=== PATIENT | male | born 1975 | race Caucasian/White ===

== ENCOUNTER → 2021-11-14 07:32 | Outpatient (REF) | payer OTHER, SELFPAY ==
[2021-11-14 09:40] LABS: Body Fluid Mononuclear 82.3 %; Body Fluid Polymorphonuclear 17.7 %; Body Fluid WBC 96 /CUMM
[2021-11-14 09:52] LABS: Body Fluid Second Tech AP
== END | disposition home or self-care (01) ==
LOC: RADI 07:32
PROVIDERS: ATTENDING PHYSICIAN Internal Medicine Gastroenterology; FAMILY PHYSICIAN Family Medicine
DX: R18.8 Other ascites (principal)
CPT/HCPCS: 49083; 87015; 87070; 87205; 89051

== ENCOUNTER → 2023-12-19 06:29 | Outpatient (REF) | payer OTHER, SELFPAY ==
[2023-12-19 07:33] VITALS: BP 111/80; BP_SYST 105
[2023-12-19 08:33] VITALS: BP 106/93
[2023-12-19 10:31] LABS: Body Fluid Mononuclear 88.3 %; Body Fluid Polymorphonuclear 11.7 %; Body Fluid WBC 34 /CUMM
[2023-12-19 10:40] LABS: Body Fluid Second Tech BD
== END ==
LOC: RADI 06:29
PROVIDERS: ATTENDING PHYSICIAN Specialist
DX: R18.8 Other ascites (principal)
CPT/HCPCS: 49083; 87015; 87070; 87205; 89051

== ENCOUNTER → 2023-12-25 07:28 | Outpatient (REF) | payer OTHER, SELFPAY ==
[2023-12-25 07:57] VITALS: BP 86/53; BP_SYST 77
[2023-12-25 09:38] LABS: Body Fluid Mononuclear 96.2 %; Body Fluid Polymorphonuclear 3.8 %; Body Fluid WBC 26 /CUMM
[2023-12-25 09:45] LABS: Body Fluid Second Tech AMA
== END ==
LOC: RADI 07:28
PROVIDERS: ATTENDING PHYSICIAN Specialist; FAMILY PHYSICIAN Family Medicine
DX: R18.8 Other ascites (principal)
CPT/HCPCS: 49083; 87015; 87070; 87205; 89051

== ENCOUNTER → 2024-01-01 07:34 | Outpatient (REF) | payer OTHER, SELFPAY ==
[2024-01-01 07:48] VITALS: BP 97/64; BP_SYST 73
[2024-01-01 08:25] VITALS: BP 93/53; BP_SYST 71
[2024-01-01 08:42] VITALS: BP 94/55
[2024-01-01 08:57] LABS: Body Fluid Mononuclear 80.8 %; Body Fluid Polymorphonuclear 19.2 %
[2024-01-01 09:00] LABS: Body Fluid WBC 26 /CUMM
[2024-01-01 09:23] LABS: Body Fluid Second Tech CMB
== END ==
LOC: RADI 07:34
PROVIDERS: ATTENDING PHYSICIAN Specialist
DX: R18.8 Other ascites (principal)
CPT/HCPCS: 49083; 87015; 87070; 87205; 89051

== ENCOUNTER 2024-01-01 09:04 | Outpatient (RCR) | payer OTHER, SELFPAY ==
[2023-12-04 09:20] VITALS: BP 144/88
[2023-12-04 09:30] VITALS: BP 144/88
[2023-12-04] MEDS: FLEXBUMIN 50 IV (09:33)
[2023-12-04 10:20] VITALS: BP 126/73
[2023-12-04] MEDS: FLEXBUMIN 100 IV (10:21)
[2023-12-04 11:45] VITALS: BP 127/74
[2023-12-19 09:25] VITALS: BP 141/56
[2023-12-19 09:52] VITALS: BP 141/56
[2023-12-19] MEDS: FLEXBUMIN 100 IV (09:52)
[2023-12-19 11:19] VITALS: BP 115/62
[2023-12-19] MEDS: FLEXBUMIN 50 IV (11:19)
[2023-12-19 12:00] VITALS: BP 147/70
[2023-12-25] MEDS: FLEXBUMIN 100 IV (09:28)
[2023-12-25 09:30] VITALS: BP 84/48
[2023-12-25 10:15] VITALS: BP 79/48
[2023-12-25] MEDS: FLEXBUMIN 50 IV (10:52)
[2023-12-25 11:30] VITALS: BP 75/46
[2023-12-25 11:40] VITALS: BP 79/48
[2023-12-25 12:00] VITALS: BP 76/46
--- NOTE | 2023-12-25 12:15 | W.PN.UPDATE ---
Update Note
- Progress Note Update
12/25/23 2515
Asked to come assess patient. He recently underwent paracentesis this am removing 5700mL. Prior to completing paracentesis he was hypotensive at 76/57 and one hour later finally got up to 88/56 and it was decided to proceed with paracentesis. He
was then sent to the [facility] for albumin. He continued to be hypotensive in [facility] with BP around 79/48. TT sent to GI LANGUAGE THERAPIST Vanessa Guido who advised patient could consider ER or go home and take midrodrine (which he reported not taking in 2 days).
Attempted to find dosing or prescriber but unable and patient unaware. He reported feeling well without complaints. Denies dizziness, shortness of breath, nausea, imbalance, etc. Advised patient of GI LANGUAGE THERAPIST suggestions. He then reported he has an
appt with GI this afternoon at 1pm. Observed patient walking to and from bathroom with walker assist and without symptoms. He plans to go home after appt with GI and will come to ER if he has developing symptoms. s/s of hypotension reviewed. He
knows to call the office for any additional questions or concerns.
[2023-12-25 12:20] VITALS: BP 75/44
--- NOTE | 2023-12-25 12:44 | PTCARENOTE ---
09 Pt arrived from [facility] post paracentesis. BP 84/48 HR 70. Remains unchanged from report received from [facility] nurse.
1131 Albumin infusion completed BP remains at 75/46 HR 89 .Pt awake alert and orients x 3. Pt denies dizziness. Denies any bleeding.
Crystal [facility] [employer] evaluating patient, communicated with GI FOUNDER AND CEO Vanessa Guido.
Pt states has not taken Midodrine for the last few days. Patient unsure of dose or who has prescribed medication. Offerd patient eval in ED. Pt declined. Pt stated has office visit at GI office today at 1 PM.
Pt ambulated to bathroom using walker. Pt continues to deny dizziness.
BP on discharge 75/44 HR 81. left unit via motor scooter.
[2024-01-01 09:15] VITALS: BP 110/62
[2024-01-01 09:20] VITALS: BP 110/62
[2024-01-01] MEDS: FLEXBUMIN 100 IV (09:20)
[2024-01-01 10:50] VITALS: BP 112/60
== END 2024-01-01 14:29 | disposition home or self-care (01) ==
LOC: OID 09:04
PROVIDERS: ATTENDING PHYSICIAN Nurse Practitioner Adult Health; FAMILY PHYSICIAN Family Medicine
DX: K70.31 Alcoholic cirrhosis of liver with ascites (principal); Z92.89 Personal history of other medical treatment; Z98.890 Other specified postprocedural states; K76.6 Portal hypertension; I85.00 Esophageal varices without bleeding
CPT/HCPCS: 49083; 87015; 87070; 87205; 89051; 96365; 96366; P9047

== ENCOUNTER → 2024-01-10 09:12 | Outpatient (REF) | payer OTHER, SELFPAY ==
--- NOTE | 2024-01-08 08:13 | PN.IRAD.UPD ---
Update Note - [facility]
- -
Patient was scheduled for a 7am arrival time for his [facility] apt. Patient showed up to registration at 7:45 for his apt. I had to ask Johnny to reschedule because he lost his slot in [facility]. Patient was angry and argumentative at registration. I went
out to speak with the patient to explain why we can not take him when he is 45 mins late, how it affects not just the [facility] schedule but also the [facility] schedule for his Albumin infusion post. I offered the patient a new date/time for this week. I have
had many discussions with this patient about how important it is to be on time fo his appointments.
--- NOTE | 2024-01-09 10:36 | PTCARENOTE ---
Attempted to call patient to remind him of his appointment tomorrow, 01/10/2024, when called, call went right to voicemail, and the voicemail mailbox was full and unable to leave a message.
[2024-01-10 09:30] VITALS: BP 115/82; BP_SYST 120
[2024-01-10 10:30] VITALS: BP 110/75
[2024-01-10 12:08] LABS: Body Fluid Polymorphonuclear 12.4 %; Body Fluid WBC 16 /CUMM
[2024-01-10 12:09] LABS: Body Fluid Mononuclear 87.6 %
[2024-01-10 12:10] LABS: Body Fluid Second Tech AMA
== END ==
LOC: RADI 09:12
PROVIDERS: ATTENDING PHYSICIAN Specialist
DX: R18.8 Other ascites (principal)
CPT/HCPCS: 49083; 87015; 87070; 87205; 89051

== ENCOUNTER 2024-01-10 10:37 | Outpatient (RCR) | payer OTHER, SELFPAY ==
[2024-01-10] MEDS: FLEXBUMIN 100 IV (11:07)
[2024-01-10 11:16] VITALS: BP 116/71
[2024-01-10 12:06] VITALS: BP 104/68
[2024-01-10 12:38] VITALS: BP 110/55
[2024-01-10] MEDS: FLEXBUMIN 50 IV (12:38)
[2024-01-10 13:20] VITALS: BP 104/68
== END 2024-01-30 23:59 | disposition home or self-care (01) ==
LOC: OID 10:37
PROVIDERS: ATTENDING PHYSICIAN Nurse Practitioner Adult Health; FAMILY PHYSICIAN Family Medicine
DX: K70.31 Alcoholic cirrhosis of liver with ascites (principal); Z92.89 Personal history of other medical treatment; Z98.890 Other specified postprocedural states; K76.6 Portal hypertension; I85.00 Esophageal varices without bleeding
CPT/HCPCS: 49083; 87015; 87070; 87205; 89051; 96365; 96366; P9047